=== PATIENT | male | born 1945 | race Caucasian/White ===

== ENCOUNTER 2016-05-26 11:20 | Emergency (ER) | payer BC ==
--- NOTE | 2016-05-26 11:50 | Emergency Department Record ---
History of Present Illness - General Chief Complaint: Shortness of breath Stated Complaint: SOB Time Seen by Provider: 05/26/16 11:37 Source: Patient Mode of Arrival: Wheelchair Limitations: No limitations - History of Present Illness Initial Comments: The patient is here due to progressively increasing SOB for 2 weeks. He did have open heart surgery 2 weeks ago and had an Aortic valve replaced. While in the hospital he did develop a cough and was started on Amoxicillin which he is now done with. The BOB has been progressively increasing and now he is only able to take a couple of steps before getting out of breath. The cough is slightly worse. He denies any new CP, or any fever, chills, or sputum production. MD Complaint: Shortness of breath Onset/Timin -: Week(s) Severity: Moderate Severity scale (1-10): 7 Consistency: Intermittent Improves With: Nothing Worsens With: Nothing Associated Symptoms: Cough, Sputum production Treatments Prior to Arrival: None - Related Data Home Oxygen Therapy: No Home Medications Medication Instructions Recorded Confirmed Last Taken Amoxicillin [Amoxicillin] 500 mg PO ASDIR 02/19/16 05/26/16 02/18/16 Aspirin 81 mg PO QHS 02/19/16 05/26/16 02/18/16 Atorvastatin Calcium 20 mg PO QHS 02/19/16 05/26/16 02/18/16 Levothyroxine Sodium [Synthroid] 150 mcg PO DAILY 02/19/16 05/26/16 02/18/16 Furosemide [Lasix] 20 mg PO DAILY 05/26/16 05/26/16 Unknown Hydrocodone/Acetaminophen [Harrod 1 tab PO Q6H PRN 05/26/16 05/26/16 Unknown 5mg/325mg] Lisinopril [Zestril] 2.5 mg PO DAILY 05/26/16 05/26/16 Unknown Metoprolol Tartrate [Lopressor] 25 mg PO BID 05/26/16 05/26/16 Unknown Multivitamin [Multi-Vitamin Daily] 1 each PO DAILY 05/26/16 05/26/16 Unknown Omeprazole 20 mg PO DAILY 05/26/16 05/26/16 Unknown Previous Rx's Medication Instructions Recorded Famotidine [Pepcid] 40 mg PO DAILY #30 tablet 02/19/16 Allergies Allergy/AdvReac Type Severity Reaction Status Date / Time Sulfa (Sulfonamide Allergy HIVES Verified 05/26/16 11:24 Antibiotics) Travel Screening - Travel/Exposure Within Last 30 Days Have you traveled within the last 30 days?: No Review of Systems Constitutional: Reports: Malaise. Denies: Chills, Fever Eyes: Denies: Eye discharge ENT: Reports: Congestion Respiratory: Reports: Cough, Dyspnea. Denies: Hemoptysis Cardiovascular: Reports: Chest pain (Post op). Denies: Arrhythmia Endocrine: Reports: Fatigue Gastrointestinal: Denies: Diarrhea Genitourinary: Denies: Urgency Musculoskeletal: Denies: Back pain Skin: Denies: Bruising Past Medical History - SOCIAL HISTORY Smoking Status: Never smoker Alcohol Use: None Drug Use: None - RESPIRATORY Hx Respiratory Disorders: Yes Hx Bronchitis: Yes Hx Dyspnea: Yes Hx Pneumonia: Yes Hx Sleep Apnea: Yes Hx of CPAP: Yes - CARDIOVASCULAR Hx Cardio Disorders: Yes Hx Abnormal EKG: Yes Hx Cardiac Cath: (scheduled for week september) Hx Heart Attack: Yes (showed old WA on EKG pt unaware of this) Hx Hypertension: Yes (well controlled) Hx Palpitations: Yes Comment:: hyperlipidemia - NEURO Hx Neuro Disorders: No - GI Hx GI Disorders: Yes Hx Reflux: Yes Hx Ulcer: Yes - Hx Genitourinary Disorders: No - ENDOCRINE Hx Endocrine Disorders: Yes Hx Thyroid Disease: Yes (on meds thyroidectomy 1978) - MUSCULOSKELETAL Hx Musculoskeletal Disorders: Yes Hx Arthritis: Yes (in back) - PSYCH Hx Psych Problems: Yes Hx Depression: Yes - HEMATOLOGY/ONCOLOGY Hx Hematology/Oncology Disorders: Yes Hx Cancer: Yes (skin CA nose) Family Medical History Any Significant Family History?: Yes Hx Heart Disease: Father, Mother Physical Exam - General General Appearance: Alert, Oriented x3, Cooperative, No acute distress - Head Head exam: Atraumatic, Normocephalic, Normal inspection - Eye Eye exam: Normal appearance, PERRL - ENT Throat exam: Normal inspection. negative: Tonsillar erythema, Tonsillar exudate - Neck Neck exam: Normal inspection, Full ROM. negative: Lymphadenopathy, Tenderness - Respiratory Respiratory exam: Decreased breath sounds (at the bases R>L.). negative: Normal lung sounds bilaterally - Cardiovascular Cardiovascular Exam: Regular rate, Normal rhythm, Normal heart sounds. negative : Diastolic murmur, Systolic murmur - GI/Abdominal GI/Abdominal exam: Soft, Normal bowel sounds. negative: Tenderness - Extremities Extremities exam: Normal inspection, Pedal edema (2+ bilaterally.) - Neurological Neurological exam: Alert, Normal gait. negative: Abnormal gait, Motor sensory deficit Course Vital Signs 05/26/16 11:25 Temperature 97.6 F Pulse Rate 75 Respiratory 24 Rate Blood Pressure 142/74 Pulse Ox 96 - Reevaluation(s) Reevaluation #1: The patient is resting comfortably. He denies any pain or SOB presently. I did discuss the lab results and the need for transfer back to [facility] and he agrees with the plan. 05/26/16 12:41 Reevaluation #2: I did discuss the case with Dr. Nichole who is the vascular surgeon conductor freight at [facility] and he is familiar with the patient. He would like the patient transferred to his office at [facility]. I did give the patient 40 mg of Lasix here and we will let his diurese and he will be transferred to the office. I did offer to send the patient to the ER at [facility] in an ER to ER transfer but he declined and would rather go to the office with his son driving. 05/26/16 13:09 Reevaluation #3: The patient is doing very well at this time. He has urinated about 1300 cc of urine and states his breathing is a lot better. I again did offer to send the patient to the ER but he declined and would just want to go to the office for Dr. Nichole to evaluate. 05/26/16 13:46 Reevaluation #4: The patient is doing much better at this time. He has urinated a total of 2300 cc's of urine and is ambulating much better. 05/26/16 14:06 Medical Decision Making - Data Complexity MDM Data: Labs Ordered and/or Reviewed, X-Ray Ordered and/or Reviewed, EKG Ordered and/or Reviewed - Lab Data Result diagrams: 05/26/16 11:59 05/26/16 11:59 - EKG Data -: EKG Interpreted by Me EKG: No Acute Changes - Radiology Data Radiology results: Report reviewed (CXR: CMG, CHF) Disposition Disposition: Transfer Clinical Impression: Congestive heart failure (CHF) Qualifiers: Congestive heart failure type: unspecified congestive heart failure type Congestive heart failure chronicity: unspecified congestive heart failure chronicity Qualified Code(s): I50.9 - Heart failure, unspecified Disposition: Acute Care Hospital Transfer Transfer To: [facility]. Reason For Transfer: Post op Aortic Valve Replacement. Accepting Physician: Dionisio Time Discussed w/Accepting Physician: 14:00 Condition: (2) Stable Additional Instructions: Please proceed directly to Dr. Kee office at [facility] in the Professional Building. Forms: Patient Portal Access Time of Disposition: 14:00
[2016-05-26 12:05] LABS: BASO % 0.2 % (0-6); EOS % 1.3 % (0-6); GRAN % 77.3 % (47-80); HEMATOCRIT 24.7 % (42.0-52.0); HEMOGLOBIN 7.6 gm/dl (14.0-18.0); LYMPH % 8.9 % (16-45); MEAN CELL VOLUME 90.1 fl (81-97); MEAN CORPUSCULAR HEMOGLOBIN 27.7 pg (27-33); MEAN CORPUSCULAR HGB CONC 30.8 g/dl (32-36); MEAN PLATELET VOLUME 8.2 fl (7.4-10.4); MONO % 12.3 % (0-9); PLATELET COUNT 641 K/uL (130-400); RED BLOOD COUNT 2.74 M/uL (4.40-5.70); RED CELL DISTRIBUTION WIDTH 13.7 % (11.5-14.5); WHITE BLOOD COUNT W/O DIFF 10.8 K/uL (4.2-12.2)
[2016-05-26 12:17] LABS: ANION GAP 10.8 (7-16); BLOOD UREA NITROGEN 11 mg/dL (9-20); CARBON DIOXIDE 28.2 mmol/L (22-30); CREATINE PHOSPHOKINASE 48 U/L (55-170); CREATININE 0.8 mg/dL (0.66-1.25); EST GLOMERULAR FILTRATION RATE > 60 ml/min; GLUCOSE,RANDOM 116 mg/dL (70-110); INR 1.01; PROTHROMBIN TIME (PATIENT) 11.4 SECONDS (9.5-12.1)
[2016-05-26 12:29] LABS: CKMB 1.8 ug/L (0-6); TROPONIN I 0.027 ng/mL (0.00-0.034)
[2016-05-26] MEDS ORDERED: FUROSEMIDE IV 40MG/4ML VIAL IVP ONE (12:32)
--- NOTE | 2016-05-26 13:34 | RADIOLOGY REPORT ---
EXAM: CHEST, TWO VIEWS HISTORY: DIFFICULTY BREATHING. TECHNIQUE: Frontal and lateral views of the chest were obtained. Comparison: Prior chest from 03/17/08. FINDINGS: Cardiomegaly with median sternotomy wires. Ectasia of the thoracic aorta. Interstitial edema with small bibasilar effusions. No pneumothorax. IMPRESSION: CARDIOMEGALY WITH INTERSTITIAL EDEMA AND SMALL BILATERAL EFFUSIONS. JOB NUMBER: [id number] MTDD
== END 2016-05-26 14:27 | disposition short-term general hospital (02) ==
LOC: ER 11:20
DX: I50.9 Heart failure, unspecified (principal); I10 Essential (primary) hypertension; I25.2 Old myocardial infarction; Z95.2 Presence of prosthetic heart valve
CPT/HCPCS: 71020; 80048; 82550; 82553; 83880; 84484; 85025; 85610; 85730; 93005; 93010; 96374; 99285; J1940